=== PATIENT | male | born 1980 | race Caucasian/White ===

== ENCOUNTER 2017-02-23 17:55 | Emergency (ER) | payer BC ==
[2017-02-23 17:57] VITALS: BP 146/82; PULSE 76; RESP 12; TEMP 98.4; O2SAT 98
--- NOTE | 2017-02-23 18:47 | RADRPT ---
EXAM DATE/TIME: 02/23/2017 18:24 [facility] COMPARISON: No previous studies available for comparison. INDICATIONS : Left and mid jaw pain after slipping and falling on concrete. MEDICAL HISTORY : None. SURGICAL HISTORY : None. ENCOUNTER: Initial ACUITY: 1 day PAIN SCORE: 6/10 LOCATION: Left jaw. FINDINGS: Multiple views through the mandible show linear lucencies through the mandibular condyles bilaterally concerning for nondisplaced fractures. There are many mandibles unremarkable. CONCLUSION: Concern for possible bilateral nondisplaced condyle fractures. Consider CT scan. Andres Billy Jr., MD on February 23, 2017 at 18:44 Board Certified Radiologist. This report was verified electronically.
--- NOTE | 2017-02-23 20:28 | RADRPT ---
EXAM DATE/TIME: 02/23/2017 20:00 [facility] COMPARISON: No previous studies available for comparison. INDICATIONS : Patient slipped and fell hitting his chin on the concrete,laceration RADIATION DOSE: 36.44 CTDIvol (mGy) MEDICAL HISTORY : None SURGICAL HISTORY : None. ENCOUNTER: Initial ACUITY: 1 day PAIN SCORE: 8/10 LOCATION: facial TECHNIQUE: Volumetric scanning of the facial bones was performed. Using automated exposure control and adjustme nt of the mA and/or kV according to patient size, radiation dose was kept as low as reasonably achiev able to obtain optimal diagnostic quality images. DICOM format image data is available [email or web address] y for review and comparison. FINDINGS: Acute mandibular fractures observed. Both are nondisplaced and without angulation. There is a fractur e through the condyle on the left with extension towards the articular surface of the temporomandibul ar joint. This approaches the most lateral portion of the articular surface. There is a fracture thro ugh the left body of the mandible. No fracture involving the right condyle or right body. The remaini ng bony structures are intact. A mucus retention cyst is seen involving the right maxillary sinus. Re maining paranasal sinuses and mastoid air cells are clear. CONCLUSION: 1. Acute nondisplaced fractures involving the left condyle and left body of the mandible. Andres Billy Jr., MD on February 23, 2017 at 20:23 Board Certified Radiologist. This report was verified electronically.
--- NOTE | 2017-02-23 20:30 | RADRPT ---
EXAM DATE/TIME: 02/23/2017 20:15 [facility] COMPARISON: No previous studies available for comparison. INDICATIONS : Right wrist pain after fall on concrete. MEDICAL HISTORY : None. SURGICAL HISTORY : None. ENCOUNTER: Initial ACUITY: 1 day PAIN SCORE: 4/10 LOCATION: Right wrist. FINDINGS: Three view examination of the right wrist demonstrates no soft tissue swelling, dislocation, or fract ure. The carpal bones are in normal alignment. The joint spaces are maintained. Bony mineralizatio n is normal. CONCLUSION: Unremarkable examination of the right wrist. Andres Billy Jr., MD on February 23, 2017 at 20:28 Board Certified Radiologist. This report was verified electronically.
--- NOTE | 2017-02-23 20:44 | PD ---
HPI Chief Complaint: Laceration/Skin Injury Time Seen by Provider: 20:40 Travel History International Travel<30 days: No Contact w/Intl Traveler<30days: No Traveled to known affect area: No History of Present Illness HPI 36-year-old white male presents to emergency Department with complaints of a chin laceration and jaw pain after a slip and fall earlier this afternoon sometime around 2:30 PM. He states that he was over a friend's house helping a menstrual a door on his own time. He states that he had tried a horan and he slipped exiting a door falling down striking his chin on the concrete. He states that he had immediate pain. He sustained a laceration to his mentum. He 's had pain in his left jaw with some mild swelling. He states that he has difficulty biting down fully because of pain. No alleviating factors. He has not had a tetanus shot over 5 years. Patient denies any dental injury. No syncope. No neck or back pain. He does complain of right wrist pain. He states that he does have right wrist pain on occasion. Worse today since the fall. PFSH Past Medical History Narrative Medical Denies diabetes and hypertension Tetanus Vaccination: > 5 Years Past Surgical History Surgical History: No Previous Surgery Social History Alcohol Use: No Tobacco Use: No Allergies-Medications (Allergen,Severity, Reaction): Coded Allergies: No Known Allergies (Unverified , 02/23/17) Reported Meds & Prescriptions Reported Meds & Active Scripts Active Peridex Liq (Chlorhexidine Gluconate (Mouth) Liq) 0.12% Soln 15 Ml SWISH-SPIT BID Percocet (Oxycodone-Acetaminophen) 5-325 mg Tab 1 Tab PO Q4H PRN Review of Systems General / Constitutional: No: Fever Eyes: No: Visual changes HENT: Positive: Other (left jaw pain), No: Headaches, Sore Throat, Neck Stiffness, Neck Pain, Gingival Bleeding, Dental Difficulties Cardiovascular: No: Chest Pain or Discomfort Respiratory: No: Shortness of Breath Gastrointestinal: No: Abdominal Pain Genitourinary: No: Dysuria Musculoskeletal: Positive: Arthralgias, Limited ROM, Pain (right wrist) Skin: No Rash Neurologic: No: Weakness Psychiatric: No: Depression Endocrine: No: Polydipsia Hematologic/Lymphatic: No: Easy Bruising Physical Exam Narrative GENERAL: Well-developed, well-nourished in no apparent distress. Nontoxic appearing. HEAD: Normocephalic, patient has tenderness and mild swelling to the left mandible. Patient also has a 3 cm laceration to the mentum. EYES: Pupils equal round and reactive. Extraocular motions intact. No scleral icterus. No injection or drainage. No dental injury. ENT: Nose clear. Throat without erythema, tonsillar hypertrophy or exudate. Uvula midline. Airway patent. NECK: Trachea midline. Supple, nontender, moves head freely. No central bony tenderness or spasm. CARDIOVASCULAR: Regular rate and rhythm without murmurs, gallops, or rubs. RESPIRATORY: Clear to auscultation. Breath sounds equal bilaterally. No wheezes , rales, or rhonchi. GASTROINTESTINAL: Abdomen soft, non-tender, nondistended. No hepato-splenomegaly , or palpable masses. No guarding. EXTREMITIES: No clubbing, cyanosis, or edema. No joint tenderness. BACK: Nontender without deformity. No flank tenderness. NEUROLOGICAL: Awake, alert and oriented x 3 .Cranial nerves grossly intact. Motor and sensory grossly within normal limits. Normal speech. Data Data Last Documented VS Vital Signs Date Time Temp Pulse Resp B/P (MAP) Pulse Ox O2 Delivery O2 Flow Rate FiO2 02/23/17 17:57 98.4 76 12 146/82 (103) 98 Orders Orders Mandible, Complete (Min 4vws) (02/23/17 ) Ct Facial Bones W/O Iv Cont (02/23/17 ) Wrist, Complete (Num1zrd) (02/23/17 ) Morphine Inj (Morphine Inj) (02/23/17 20:45) Ondansetron Odt (Zofran Odt) (02/23/17 20:45) [facility] Medical Decision Making Medical Screen Exam Complete: Yes Emergency Medical Condition: Yes Medical Record Reviewed: Yes Interpretation(s) Last 24 hours Impressions Wrist X-Ray 02/23/17 0000 Signed Impressions: Service Date/Time: February 20:15 - CONCLUSION: Unremarkable examination of the right wrist. Andres Billy Jr., MD Maxillofacial CT 02/23/17 0000 Signed Impressions: Service Date/Time: February 20:00 - CONCLUSION: 1. Acute nondisplaced fractures involving the left condyle and left body of the mandible. Andres Billy Jr., MD Mandible X-Ray 02/23/17 0000 Signed Impressions: Service Date/Time: February 18:24 - CONCLUSION: Concern for possible bilateral nondisplaced condyle fractures. Consider CT scan. Andres Billy Jr., MD Differential Diagnosis MDM: High Differential diagnoses: Fracture, sprain, strain, dislocation, contusion, neurovascular injury Narrative Course Patient's laceration is closed sutures. He is given 6 mg of morphine IM and 4 mg of Zofran by mouth. X-ray of the wrist is negative for bony injury. CT scan of the mandible reveals a nondisplaced left condylar fracture. The case has been discussed with Dr. Draper who has agreed to see the patient follow-up in the office. Pain medication soft diet. Diagnosis Primary Impression: Fracture of left condylar process of mandible Qualified Codes: S02.612A - Fracture of condylar process of left mandible, initial encounter for closed fracture Additional Impressions: Chin laceration Qualified Codes: S01.81XA - Laceration without foreign body of other part of head, initial encounter Right wrist sprain Qualified Codes: S63.501A - Unspecified sprain of right wrist, initial encounter Referrals: Sohail Luis DDS 1 day Patient Instructions: Narcotic given in the ED, General Instructions Additional Instructions: Rest. Icepack. Percocet for pain. Peridex. Soft food. No chewing. Call the office tomorrow morning at 9:00. May eat up until midnight today but do not eat anything after midnight. Return to the ER for problems. Med/Other Pt SpecificInfo: Prescription(s) given Scripts Chlorhexidine Gluconate (Mouth) Liq (Peridex Liq) 0.12% Soln 15 ML SWISH-SPIT BID, #473 ML 0 Refills Prov: Alva Lock DO 02/23/17 Oxycodone-Acetaminophen (Percocet) 5-325 mg Tab 1 TAB PO Q4H Y for PAIN, #12 TAB 0 Refills Prov: Alva Lock DO 02/23/17 Disposition: 01 DISCHARGE HOME Condition: Stable Eleazar Soares Feb 23, 2017 20:44
[2017-02-23] MEDS ORDERED: ONDANSETRON ODT 4 MG TAB PO ONE (20:45)
[2017-02-23] MEDS ORDERED: MORPHINE SULFATE 8 MG/ML INJ SQ ONE (20:45)
[2017-02-23] MEDS ORDERED: PERI0.126 SWISH-SPIT (20:53)
[2017-02-23] MEDS ORDERED: PERC5TAB12 PO (20:53)
== END 2017-02-23 21:30 | disposition home or self-care (01) ==
LOC: NEPK 17:55
DX: S02.612A Fracture of condylar process of left mandible, initial encounter for closed fracture (principal); S01.81XA Laceration without foreign body of other part of head, initial encounter; S63.501A Unspecified sprain of right wrist, initial encounter; W01.0XXA Fall on same level from slipping, tripping and stumbling without subsequent striking against object, initial encounter
CPT/HCPCS: 12013; 70110; 70486; 73110; 96372; 99285; J2270